=== PATIENT | male | born 1980 | race Caucasian/White ===

== ENCOUNTER → 2017-05-11 | Outpatient (CLI) | payer OTHER ==
[~2017-05-11] MED LIST: AMOXICILLIN 50500 MG PO; CLARITIN D TAB1 TAB PO; DOXYCYCLINE 10100 MG PO; ILOTYCIN5 MG/GM OP; LEVAQUIN 5500 MG/TA1 PO; NORCO 325 MG-51 TAB PO; SINGULAIR 110 MG/TAB PO; SUDAFED 12 HOU120 MG PO
== END ==
LOC: COL.RAD 11:15
DX: R10.9 Unspecified abdominal pain (principal); Z85.72 Personal history of non-Hodgkin lymphomas
CPT/HCPCS: Q9967

== ENCOUNTER 2017-08-13 01:08 | Emergency (ER) | payer SELFPAY ==
[~2017-08-13] VITALS: Ht 180.3 cm; Wt 90.9 kg
[~2017-08-13 01:08] MED LIST changes: -AMOXICILLIN 50500 MG PO; -SINGULAIR 110 MG/TAB PO
[2017-08-13 01:14] VITALS: BP 136/76; PULSE 92; TEMP 98.2
[2017-08-13] MEDS ORDERED: SINGULAIR 110 MG/TAB PO (01:47)
[2017-08-13] MEDS ORDERED: AMOXICILLIN 50500 MG PO (01:58)
== END 2017-08-13 02:13 | disposition home or self-care (01) ==
LOC: COL.ER 01:08
DX: J02.0 Streptococcal pharyngitis (principal)

== ENCOUNTER → 2021-05-08 | Outpatient (CLI) | payer OTHER ==
[~2021-05-08] MED LIST changes: +AMOXICILLIN 50500 MG PO; +CLARITIN 1010 MG/TAB PO; +SINGULAIR 110 MG/TAB PO
== END ==
LOC: COL.RAD 14:23
DX: R05 Cough (principal)

== ENCOUNTER 2021-08-08 09:45 | Day surgery (SDC) | payer OTHER ==
[~2021-08-08] VITALS: Ht 180.3 cm; Wt 102.7 kg
[~2021-08-08 09:45] MED LIST changes: -CLARITIN 1010 MG/TAB PO
[2021-08-08] MEDS ORDERED: SUDAFED 12 HOU120 MG PO (10:41)
[2021-08-08] MEDS ORDERED: CLARITIN 1010 MG/TAB PO (10:42)
[2021-08-08 10:54] VITALS: BP 145/98; PULSE 82; TEMP 97.3
[2021-08-08 13:00] VITALS: BP 128/106; PULSE 82; TEMP 97.8
--- NOTE | 2021-08-08 13:00 | NUR ---
Pt to GI bay 5 via cart from [place]. Pt awake and alert. Pt ambulates to recliner with stand by assistance. Pt denies pain or nausea. Muffin and coffee given per pt request. No visitors here with pt at this time. Call light within reach.
[2021-08-08 13:15] VITALS: BP 142/92; PULSE 86
--- NOTE | 2021-08-08 13:15 | NUR ---
Pt tolerating PO food and fluids without nausea. Denies needs. Call light within reach.
[2021-08-08 13:30] VITALS: BP 131/88; PULSE 81
--- NOTE | 2021-08-08 13:30 | NUR ---
Pt continues to rest. into speak with pt.
[2021-08-08 13:45] VITALS: BP 145/95; PULSE 86
--- NOTE | 2021-08-08 13:45 | NUR ---
Discharge instructions reviewed. Pt voices understanding. IV site discontinued with all parts intact. Pt up to dress.
--- NOTE | 2021-08-08 14:00 | NUR ---
Pt escorted to private car. Pt accompanied by his friend.
== END 2021-08-08 14:00 | disposition home or self-care (01) ==
LOC: SDCO 09:45
DX: Z12.11 Encounter for screening for malignant neoplasm of colon (principal); Z80.0 Family history of malignant neoplasm of digestive organs; K64.0 First degree hemorrhoids; K92.1 Melena; J45.909 Unspecified asthma, uncomplicated; Z85.72 Personal history of non-Hodgkin lymphomas
CPT/HCPCS: J2704; J3010; J7030

== ENCOUNTER 2022-12-17 05:32 | Day surgery (SDC) | payer SELFPAY ==
[~2022-12-17] VITALS: Ht 180.3 cm; Wt 110.5 kg
[~2022-12-17 05:32] MED LIST changes: +CLARITIN 1010 MG/TAB PO
[2022-12-17] MEDS ORDERED: ADVIL200 MG PO (06:11)
[2022-12-17 06:17] VITALS: BP 160/99; PULSE 95; TEMP 97.5
[2022-12-17 07:35] VITALS: BP 120/80; PULSE 88
--- NOTE | 2022-12-17 07:35 | NUR ---
Patient returns to room 8 per cart from surgery accompanied by Edmund ENGLISH and Shirley BENSON. Patient arouses to verbal stimuli. IV fluids infusing. Temp 97.5 and room air sats 98%. Dressing and kassandra wrap dry on the right hand. Fingers warm to touch. Siderails up x2 and call light in reach. Allowed to rest.
[2022-12-17 07:50] VITALS: BP 128/80; PULSE 74
--- NOTE | 2022-12-17 07:50 | NUR ---
Resting without complaints of pain or nausea. Right arm elevated on chest and dressing clean and dry on the right hand.
[2022-12-17 08:05] VITALS: BP 127/78; PULSE 84
--- NOTE | 2022-12-17 08:05 | NUR ---
More awake. Drinking water. Offers no complaints of pain or nausea.
--- NOTE | 2022-12-17 08:10 | NUR ---
IV discontinued and site is free of redness or swelling. Standing at edge of cart is able to dress self. Gait steady.
--- NOTE | 2022-12-17 08:25 | NUR ---
Dismissal instructions given and voices understanding of these. Provided office number for questions and concerns. Assisted into wheelchair. [id number] Patient dismissed to home driven by friend and assisted into private vehicle with dismissal instructions in hand.
== END 2022-12-17 08:33 | disposition home or self-care (01) ==
LOC: SDCO 05:32
DX: G56.01 Carpal tunnel syndrome, right upper limb (principal)
CPT/HCPCS: J0690; J2704; J7120

== ENCOUNTER 2023-11-18 03:55 | Emergency (ER) | payer OTHER ==
[~2023-11-18] VITALS: Ht 180.3 cm; Wt 104.5 kg
[~2023-11-18 03:55] MED LIST changes: +ADVIL200 MG PO
[2023-11-18 04:47] LABS: BASO # 0.1 K/mm3 (0.0-0.2); EOS # 0.3 K/mm3 (0.0-0.7); EOS % 4.3 % (0.0-4.0); GRAN # 3.9 K/mm3 (1.4-6.5); GRAN % 54.7 % (42.2-75.2); HEMATOCRIT 40.2 % (42.0-52.0); HEMOGLOBIN 14.6 g/dl (13.5-18.0); LYMPH # 2.2 K/mm3 (1.2-3.4); LYMPH % 30.8 % (20.0-51.0); MEAN CELL VOLUME 85 fl (80.0-100.0); MEAN CORPUSCULAR HEMOGLOBIN 31 pg (27-31); MEAN CORPUSCULAR HGB CONC 36 g/dl (33.0-37.0); MEAN PLATELET VOLUME 9.2 fl (7.4-10.4); MONO # 0.6 K/mm3 (0.1-0.6); MONO % 8.3 % (1.7-9.3); PLATELET COUNT 225 K/mm3 (130-400); RED BLOOD COUNT 4.72 M/mm3 (4.20-5.60); REDCELL DISTRIBUTION WIDTH-CV 12.2 % (11.5-14.5)
[2023-11-18 05:02] LABS: BILIRUBIN,TOTAL 0.8 mg/dL (0.2-1.2); CALCIUM 9.8 mg/dL (8.4-10.2); CREATININE, serum 1.25 mg/dL (0.72-1.25); POTASSIUM 3.8 mmol/L (3.5-4.5); TOTAL PROTEIN 7.4 gm/dL (6.2-8.1)
[2023-11-18 05:17] LABS: STREP A NEGATIVE
[2023-11-18] MEDS ORDERED: TESSALON PERLE200 MG PO (05:38)
[2023-11-18] MEDS ORDERED: MEDROL 4MG DOSPA4 MG PO (05:38)
[2023-11-18 05:46] VITALS: BP 162/107; PULSE 83; TEMP 97.2
== END 2023-11-18 05:49 | disposition home or self-care (01) ==
LOC: COL.ER 03:55
PROVIDERS: Emergency Medicine
DX: J20.9 Acute bronchitis, unspecified (principal); Z87.891 Personal history of nicotine dependence
CPT/HCPCS: J1885; J7030